=== PATIENT | male | born 1975 | race Caucasian/White ===

== ENCOUNTER 2025-02-26 09:52 | Emergency (ER) | payer MEDICAID, SELFPAY ==
[2025-02-26 10:12] VITALS: BP 147/88; PULSE 46; RESP 16; TEMP 36.7; O2SAT 99; BMI 27.1
[2025-02-26 10:40] LABS: MANUAL DIFF FLAG NO
[2025-02-26 10:43] LABS: Hematocrit 42.7 % (42.0-52.0); Hemoglobin 14.6 g/dl (14.0-18.0); Imm Gran Abs Auto 0.07 X10*3/uL (0.00-0.03); Imm Gran Pct Auto 0.4 % (0.0-0.4); Lymphocytes Absolute Auto 0.7 X10*3/uL (1.2-4.9); Mean Corpuscular HGB Conc 34.2 g/dl (31.0-36.0); Mean Corpuscular Hemoglobin 27.4 pg (27.0-33.0); Mean Corpuscular Volume 80.1 fL (80.0-98.0); NRBC Abs Auto 0.000 X10*3/uL (0.0-0.012); NRBC Pct Auto 0.0 /100WBC (0.0-0.2); Platelet Count 314 X10*3/uL (160-400); Red Blood Count 5.33 X10*6/uL (4.60-5.80); White Blood Count 16.4 X10*3/uL (4.8-10.8)
[2025-02-26 11:02] LABS: Alanine Aminotransferase 19 U/L (0-40); Albumin Level 4.6 g/dL (3.5-5.0); Alkaline Phosphatase 56 U/L (39-117); Anion Gap 13 (12-20); Aspartate Amino Transferase 22 U/L (5-37); Blood Urea Nitrogen 8 mg/dL (9-16); Calcium 9.5 mg/dL (8.4-10.2); Carbon Dioxide 26 mmol/L (22-29); Chloride 102 mmol/L (96-108); Creatinine Clr Calc Pharmacy 98.2; Estimated Glomerular Filt Rate > 60; Potassium 4.7 mmol/L (3.3-5.1); Sodium 136 mmol/L (135-145); Total Protein 7.8 g/dL (6.5-8.0)
--- NOTE | 2025-02-26 11:16 | ED_ITS ---
HPI - General Adult General Chief complaint: Dental/Oral Stated complaint: Right sided facial swelling, reaction to meds Time Seen by Provider: 02/26/25 11:16 History of Present Illness ED Provider: Taryn CEDENO narrative: The patient is a 49-year-old male who is generally in good health except for having a history of psoriasis for which he is on a biologic. He receives a monthly injections of a biologic for his psoriasis. No other medications. He is a runner. He is a nonsmoker, nondrinker. He developed pain in a tooth last week, 1 of his right jaw molars. He was seen at a dental office on Monday, 4 days ago, and was told that he would need a root canal. He was put on amoxicillin. After seeing the dentist he developed significant swelling in the region of the right jaw 3 days ago on Monday. This has been getting gradually worse. He has also had nausea and vomiting. He does not think he has had a fever. Today he went back to the dental office but was advised to come to the emergency room. Related Data Previous Rx's ?Medication ?Instructions ?Recorded clindamycin HCl 300 mg capsule 600 mg (2 x 300 mg) PO TID 8 days 02/26/25 (Cleocin HCl) #48 caps ibuprofen 400 mg tablet 400 mg PO Q6H PRN pain #14 t abs 02/26/25 oxycodone 5 mg tablet 5 mg PO Q6H PRN pain #12 tab s 02/26/25 Allergies Allergy/AdvReac Type Severity Reaction Status Date / Time acetaminophen (From Vicodin) Allergy Unknown Verified 02/26/25 10:17 hydrocodone (From Vicodin) Allergy Unknown Verified 02/26/25 10:17 Review of Systems 2 Review of Systems: Yes all other systems are reviewed and are negative PMFSH Social History Social History Smoked in Last 30 Days: No Use of substances other than those prescribed or required for medical reasons: No Advance Directives: No Advance Directives Information Provided: Yes Physical Exam ED Vital Signs: Vital Signs - 24 hr 02/26/25 10:12 02/26/25 16:33 Temperature 98.1 F 98.1 F Pulse Rate 46 L 49 L Respiratory Rate 16 15 Blood Pressure 147/88 H 144/82 H Pulse Oximetry 99 97 Oxygen Delivery Method Room Air Room Air BMI result Body Mass Index 27.1 Const Other: The patient is awake and alert. He has obvious swelling in the region of the right jaw. He otherwise is well looking. Orientation/consciousness: patient oriented x3 HENMT Other: The patient has a lot of soft tissue swelling over the right jaw. There was no erythema to the skin over the right jaw. The swelling is tender but not fluctuant. There was no trismus. Patient has some decay of the right molars. When I palpate the swelling overlying the right jaw by manually I do not appreciate any very focal swelling or tenderness. It seems generalized and boggy. Eyes Other: Pupils are round equal, conjunctivae are clear, extraocular movements intact Neck Other: I do not appreciate any significant lymphadenopathy Resp Effort & Inspection: normal respiratory effort Auscultation: clear to auscultation bilaterally Cardio Rate: regular rate Rhythm: regular rhythm Heart sounds: S1 normal heart sound present and S2 normal heart sound present Skin Other: There is soft tissue swelling to the skin over the right jaw. No erythema. The skin is otherwise unremarkable. Neuro General: patient oriented x3, tone normal, moves all extremities, no focal motor deficits and CN's II-XI intact bilaterally Extrem Other: There is no calf swelling or tenderness. No asymmetry. No peripheral edema. Medications Administered Discontinued Medications Generic Name Dose Route Start Last Admin Trade Name Freq PRN Reason Stop Dose Admin Ceftriaxone Sodium 2 gm 02/26/25 11:27 02/26/25 12:37 Ceftriaxone Sodium 2 Gm Vial IVPUSH 02/26/25 11:28 2 gm ONCE ONE Administration Dexamethasone Sodium Phosphate 10 mg 02/26/25 15:50 02/26/25 16:31 Dexamethasone Sod Phosphate 10 Mg/Ml Vial IVPUSH 02/26/25 15:51 10 mg ONCE ONE Administration Diphenhydramine HCl 25 mg 02/26/25 13:58 02/26/25 14:22 Diphenhydramine Hcl 50 Mg/Ml Vial IVPUSH 02/26/25 13:59 25 mg ONCE ONE Administration Sodium Chloride 1,000 mls @ 999 mls/hr 02/26/25 11:30 02/26/25 13:25 Ns IV 02/26/25 12:30 Infused .Q1H1M AUDI Infusion Metronidazole 500 mg in 100 mls @ 100 mls/hr 02/26/25 11:27 02/26/25 13:37 Flagyl IV 02/26/25 12:26 Infused ONCE ONE Infusion Sodium Chloride 1,000 mls @ 999 mls/hr 02/26/25 14:15 02/26/25 16:30 Ns IV 02/26/25 15:15 Infused .Q1H1M AUDI Infusion Acetaminophen 1,000 mg in 100 mls @ 400 mls/hr 02/26/25 14:49 02/26/25 15:55 Ofirmev IV 02/26/25 15:03 Infused ONCE ONE Infusion Ketorolac Tromethamine 15 mg 02/26/25 11:27 02/26/25 12:27 Ketorolac Tromethamine 15 Mg/Ml Vial IVPUSH 02/26/25 11:28 15 mg ONCE ONE Administration Metoclopramide HCl 10 mg 02/26/25 13:58 02/26/25 14:22 Metoclopramide Hcl 10 Mg/2 Ml Vial IVPUSH 02/26/25 13:59 10 mg ONCE ONE Administration Ondansetron HCl 4 mg 02/26/25 11:27 02/26/25 12:27 Ondansetron Hcl 4 Mg/2 Ml Vial IVPUSH 02/26/25 11:28 4 mg ONCE ONE Administration Medical Decision Making Medical Decision Making [facility] Narrative: The patient is a 49-year-old male who presents with a dental infection over the right jaw. He has soft tissue swelling but I do not think that there is a focal abscess. The area of swelling his boggy but not well defined or fluctuant. The patient has also been complaining of nausea. The patient was given 2 g of IV ceftriaxone and 500 mg of IV furosemide. He was given IV fluids. He was given antiemetics. Was given ketorolac and acetaminophen IV. He ultimately seemed to feel somewhat better. He was able to tolerate oral intake. I think at this point further attempts at outpatient management would be appropriate. He will be prescribed clindamycin which will replace the amoxicillin he has been taking. He was also given prescriptions for oxycodone and ondansetron. He has a dental appointment tomorrow. Lab Data 02/26/25 10:36 02/26/25 10:36 Labs: Lab Results 02/26/25 Range/Units 10:36 WBC 16.4 H (4.8-10.8) X10*3/uL RBC 5.33 (4.60-5.80) X10*6/uL Hgb 14.6 (14.0-18.0) g/dl Hct 42.7 (42.0-52.0) % MCV 80.1 (80.0-98.0) fL MCH 27.4 (27.0-33.0) pg MCHC 34.2 (31.0-36.0) g/dl RDW 13.2 (11.0-16.0) % Plt Count 314 (160-400) X10*3/uL MPV 10.0 (9.4-12.4) fL Immature Gran % (Auto) 0.4 (0.0-0.4) % Neut % (Auto) 87.5 H (45-73) % Lymph % (Auto) 4.1 L (20-40) % [place] % (Auto) 7.9 (2-11) % Eos % (Auto) 0.0 (0-4) % Baso % (Auto) 0.1 (0-2) % Lymph # (Auto) 0.7 L (1.2-4.9) X10*3/uL [place] # (Auto) 1.3 H (0.1-1.2) X10*3/uL Eos # (Auto) 0.0 (0.0-0.4) X10*3/uL Baso # (Auto) 0.0 (0.0-0.2) X10*3/uL Abs Immat Gran (auto) 0.07 H (0.00-0.03) X10*3/uL Absolute Neuts (auto) 14.4 H (2.0-8.3) x10*3/uL Absolute Nucleated RBC 0.000 (0.0-0.012) X10*3/uL Nucleated RBC % (auto) 0.0 (0.0-0.2) /100WBC Sodium 136 (135-145) mmol/L Potassium 4.7 (3.3-5.1) mmol/L Chloride 102 (96-108) mmol/L Carbon Dioxide 26 (22-29) mmol/L Anion Gap 13 (12-20) BUN 8 L (9-16) mg/dL Creatinine 1.02 (0.5-1.4) mg/dL Estim Creat Clear Calc 98.2 Estimated GFR > 60 Random Glucose 137 H (60-115) mg/dL Lactic Acid 1.3 (0.5-2.0) mmol/L Calcium 9.5 (8.4-10.2) mg/dL Total Bilirubin 0.6 (0.0-1.0) mg/dL AST 22 (5-37) U/L ALT 19 (0-40) U/L Alkaline Phosphatase 56 (39-117) U/L Total Protein 7.8 (6.5-8.0) g/dL Albumin 4.6 (3.5-5.0) g/dL Discharge Plan Discharge Clinical Impression: Dental infection Patient Disposition: Home, Self-Care Instructions: Dental Abscess (ED) Additional Instructions: At the moment I do not feel that the swelling on your face is organized into a drainable abscess. At this point I think the primary treatment as antibiotics. You received IV antibiotics here in the emergency room. I have sent a prescription for additional antibiotics to your pharmacy. Please take your 1st dose this evening. This antibiotic is clindamycin. Please take this 3 times a day, approximately every 8 hours. I have also sent a prescription for ondansetron which you may use as needed for nausea. I have also sent prescriptions for ibuprofen which you may use as needed for pain. You may also use [id number] acetaminophen (Tylenol). In addition there is a prescription for oxycodone which you may use when necessary for severe pain. Please keep your appointment with the dentist tomorrow and my hope is that you will be sufficiently improved to have some kind of additional procedure next week. If you are significantly worse you should be seen again in an emergency room. Prescriptions: New clindamycin HCl [Cleocin HCl] 300 mg capsule 600 mg PO TID 8 Days Qty: 48 0RF ibuprofen 400 mg tablet 400 mg PO Q6H PRN (Reason: pain) Qty: 14 0RF oxycodone 5 mg tablet 5 mg PO Q6H PRN (Reason: pain) Qty: 12 0RF Rx Instructions: Partial Fill upon patient request. Interventions: ED Discharge Assessment Last Done: 02/26/25 16:33 Discharge Date/Time: 02/26/25 16:33 Print Language: Moroccan
[2025-02-26] MEDS: metroNIDAZOLE/NS 500 MG/100 ML PIGGYBACK 100 MG IV (12:37)
[2025-02-26 16:33] VITALS: BP 144/82; PULSE 49; RESP 15; TEMP 36.7; O2SAT 97
== END 2025-02-26 16:33 | disposition home or self-care (01) ==
PROVIDERS: Emergency Provider Emergency Medicine; PCP Family Medicine
DX: K04.7 Periapical abscess without sinus (principal); K08.89 Other specified disorders of teeth and supporting structures
CPT/HCPCS: 36415; 80053; 83605; 85025; 87040; 96361; 96374; 96375; 99284; J0131; J0696; J1100; J1200; J1836; J1885; J2405; J2765

== ENCOUNTER 2025-02-28 12:36 | Emergency (ER) | payer MEDICAID, SELFPAY ==
[2025-02-28] VITALS (9 sets, daily range): BP systolic 106–130; BP diastolic 61–73; PULSE 62–89; RESP 12–16; TEMP 36.4–37.6; O2SAT 96–97; BMI 28.8
--- NOTE | ~2025-02-28 | CT_ITS ---
EXAMINATION: CT SOFT TISSUE NECK WITH CONTRAST CLINICAL INFORMATION: Worsening of dental infection with swelling right jaw. COMPARISON: None available. TECHNIQUE: Following the intravenous administration of 60 mL of Omnipaque 350 intravenous contrast, helical imaging was performed in the axial plane with generation of coronal and sagittal reformatted images. This CT examination was performed using dose optimization techniques as appropriate, variously including the following: *Automated exposure control *Adjustment of mA and/or kV according to patient size (this includes techniques or standardized protocols for targeted exams where dose is matched to indication/reason for exam; i.e. extremities or head) *Use of iterative reconstruction technique FINDINGS: There is extensive soft tissue swelling in the right submental and premental region, with involvement of the right mandibular buccal space, where there is a bucal space subperiosteal abscess collection with peripheral enhancement measuring 4.7 x 1.1 x 3.1 cm (AP, TRV, CC). This extends posteriorly to invade the anterior medial aspect of the right masseter muscle, with thickening of the right buccinator muscle and platysma muscle. There is extension of phlegmonous infiltrative changes into the right submandibular space and to a lesser degree left submandibular space, and into the anterior cervical space inferiorly. Source of the infection is odontogenic although a clear site of infection is not identified. No periapical lucencies are large carious lesions are noted. There is no evidence of Harish's angina currently. There is mild involvement of the right floor of the mouth and right tongue base, and there is swelling of the right anterior and posterior belly of digastric. There is reactive lymphadenopathy in the level 1B and level 2 regions, right greater than left. No pathologically enlarged lymph nodes are present. The parotid glands appear normal. There is mild swelling of the right submandibular gland, likely secondarily. There is no airway effacement. Internal jugular veins are patent. Mucosal Space: -Normal without discrete lesion evident. Visceral Space: -Thyroid gland: Normal. -Larynx is normal. -Subglottic trachea is normal. -Cervical esophagus is normal. Retropharangeal Space: - Normal. Parapharyngeal Fat Planes: -Normal. Core Mounter Spaces: -As above. Left side is normal. Anterior Cervical Space: -As above. Imaged Intracranial Contents: -No mass effect, edema, or abnormal enhancement. Cortical and dural venous sinuses are patent. The skull base is normal. Globes and Orbits: -Normal. Paranasal Sinuses/Mastoids/Tympanic Spaces: -Normally aerated bilaterally. Lung Apices and Superior Mediastinal Structures: -Imaged lung apices are clear and superior mediastinal structures are normal. Bony Structures: -No suspicious bone lesions. No fractures. -Normal TM joints. CT/CT soft tissue neck w IV con IMPRESSION: 1. Odontogenic infection involving the right premental and submental regions, with a large subperiosteal abscess abutting the right mandible measuring 4.7 x 1.1 x 3.1 cm. Source is most likely the right mandible although no gross periapical lucency or large carious lesion is evident. There is secondary involvement of the right muscles of mastication, most notably the masseter muscle. 2. There is secondary extension of inflammation into the right greater than left submandibular spaces, and bilateral anterior cervical space. 3. There is mild involvement of the right floor of mouth as detailed, although there is no current gross evidence of Harish's angina. 4. There is mild reactive lymphadenopathy in the right greater than left level 1B and level 2 cervical chains. Electronically signed by: Baltazar Kruse MD 02/28/2025 03:16 PM EDT
--- NOTE | ~2025-02-28 | CT_ITS ---
EXAMINATION: CT HEAD WITHOUT CONTRAST CLINICAL INFORMATION: fall, head injury COMPARISON: None available. TECHNIQUE: Contiguous axial imaging was performed from the skull base to vertex without intravenous administration of contrast. This CT examination was performed using dose optimization techniques as appropriate, variously including the following: *Automated exposure control *Adjustment of mA and/or kV according to patient size (this includes techniques or standardized protocols for targeted exams where dose is matched to indication/reason for exam; i.e. extremities or head) *Use of iterative reconstruction technique DLP: 770.47 mGy-cm FINDINGS: Limited by patient's motion. No acute cortical disruption in the bony calvarium. No acute intracranial hemorrhage, mass effect, midline shift, hydrocephalus or herniation. Peter-white matter differentiation is normal. Posterior cranial fossa contents demonstrated no acute hemorrhage or mass effect. Normal position of the cerebellar tonsils. Sellar/suprasellar region demonstrated no gross masses or hemorrhage. No air-fluid levels in the included paranasal sinuses. Tympanic cavities and mastoid cells are aerated. No gross hematoma in the intraconal or extraconal compartments of the orbits. CT/CT head/brain wo IV con IMPRESSION: No acute fracture, bony calvarium or acute intracranial hemorrhage. Electronically signed by: Ronny Anderson MD 02/28/2025 02:51 PM EDT
[2025-02-28 12:44] LABS: Glucose, Whole Blood 134 mg/dL (60-115)
--- NOTE | 2025-02-28 12:48 | ECG_ITS ---
Test Reason : SYNCOPE Blood Pressure : */* mmHG Vent. Rate : 68 BPM Atrial Rate : 68 BPM P-R Int : 158 ms QRS Dur : 86 ms QT Int : 398 ms P-R-T Axes : 56 8 5 degrees QTcB Int : 423 ms Normal sinus rhythm Normal ECG No previous ECGs available Referred By: Rai Centeno Electronically Signed By: BONNIE CAMARENA MD
--- NOTE | 2025-02-28 13:30 | ED_ITS ---
HPI - General Adult General Chief complaint: General Medical Stated complaint: fainted Time Seen by Provider: 02/28/25 12:36 History of Present Illness ED Provider: Taryn CEDENO narrative: The patient is a 49-year-old male. He is generally healthy except for psoriasis for which he takes a monthly biologic injection. He is normally active and a runner. He has had dental pain on his right jaw for several days and was seen at a dental office earlier this week and started on amoxicillin. He came to the emergency room here 2 days ago on Monday because of worsening swelling on the right side of his jaw. He was given IV antibiotics, IV fluids, and was discharged to take clindamycin 600 mg Q 8 hours. He was also prescribed ibuprofen, acetaminophen, and oxycodone. He followed up with his dentist yesterday and was advised to continue antibiotics. Over the course of the day and last night he felt that the swelling was getting worse instead of better. This morning he drove himself to the hospital because he felt the swelling was worse. He did not feel severely unwell while he was driving but apparently as soon as he entered the emergency room waiting room he felt abruptly lightheaded and had a syncopal episode with transient loss of consciousness. He struck his chin in his sustained a laceration under the left side of his chin. The patient seemed to recover immediately although he was very diaphoretic and was brought directly into a room. He has pain in the right side of his face where his swelling is. He also has some pain under his left jaw where the laceration is. He has no posterior C-spine neck pain. The patient later told me that he had had a maroon looking stool this morning. Related Data Previous Rx's ?Medication ?Instructions ?Recorded clindamycin HCl 300 mg capsule 600 mg (2 x 300 mg) PO TID 8 days 02/26/25 (Cleocin HCl) #48 caps ibuprofen 400 mg tablet 400 mg PO Q6H PRN pain #14 t abs 02/26/25 oxycodone 5 mg tablet 5 mg PO Q6H PRN pain #12 tab s 02/26/25 Allergies Allergy/AdvReac Type Severity Reaction Status Date / Time hydrocodone (From Vicodin) Allergy Unknown Verified 02/28/25 12:49 Review of Systems 2 Review of Systems: Yes all other systems are reviewed and are negative [facility] Social History Social History Smoked in Last 30 Days: No Use of substances other than those prescribed or required for medical reasons: No Advance Directives: No Advance Directives Information Provided: Yes Physical Exam ED Vital Signs: Vital Signs - 24 hr 02/28/25 12:46 02/28/25 16:21 02/28/25 16:38 Temperature 97.7 F 98.4 F 98.4 F Pulse Rate 62 84 89 Respiratory Rate 16 16 16 Blood Pressure 106/70 117/67 121/73 Pulse Oximetry 96 97 Oxygen Delivery Method Room Air Room Air 02/28/25 16:56 02/28/25 16:56 02/28/25 18:19 Temperature 99.6 F 99.6 F 97.5 F Pulse Rate 79 79 73 Respiratory Rate 16 16 16 Blood Pressure 128/65 128/65 117/61 Pulse Oximetry Oxygen Delivery Method BMI result Body Mass Index 28.8 Const Other: The patient was initially quite diaphoretic. He was awake and alert. He who was pleasant and cooperative. He had a lot of swelling on the right side of his jaw. Orientation/consciousness: patient oriented x3 HENMT Other: The patient has a lot of swelling on the right side of the jaw. He has some trismus. There was some obvious swelling in the gutter of the vestibule of the right side of the mouth which was tender and fluctuant. He had two slightly chipped teeth. There is a 4 cm horizontally oriented laceration to the skin below the left jaw. Eyes Other: Pupils are round equal, conjunctivae are clear, extraocular movements intact Neck Other: The patient has swelling in the right side of the face that extends somewhat into the right upper neck. I do not appreciate any definite adenopathy however. Resp Effort & Inspection: normal respiratory effort Auscultation: clear to auscultation bilaterally Cardio Rate: regular rate Heart sounds: S1 normal heart sound present and S2 normal heart sound present GI Other: Abdomen is soft and nontender Skin Other: The skin was initially pale and diaphoretic Neuro General: patient oriented x3, tone normal, moves all extremities, no focal motor deficits and CN's II-XI intact bilaterally Extrem Other: There is no calf swelling or tenderness. No asymmetry. No peripheral edema. Medications Administered Generic Name Dose Route Start Last Admin Trade Name Freq PRN Reason Stop Dose Admin Pantoprazole Sodium 80 mg/ 100 mls @ 10 mls/hr 02/28/25 16:00 02/28/25 16:42 Sodium Chloride IV 8 mg/hr .Q10H AUDI 10 mls/hr 8 MG/HR Administration Discontinued Medications Generic Name Dose Route Start Last Admin Trade Name Kel PRN Reason Stop Dose Admin Sodium Chloride 1,000 mls @ 999 mls/hr 02/28/25 12:45 02/28/25 15:39 Ns IV 02/28/25 13:45 Infused .Q1H1M AUDI Infusion Clindamycin Phosphate 900 mg in 50 mls @ 50 mls/hr 02/28/25 13:02 02/28/25 16:14 Cleocin IV 02/28/25 14:01 Infused ONCE ONE Infusion Iohexol 100 ml 02/28/25 14:39 02/28/25 14:40 Iohexol 350 Mg/Ml 100 Ml Infus..Btl IV 02/28/25 14:40 60 ml ONCE ONE Administration Lidocaine/Epinephrine 10 ml 02/28/25 14:05 02/28/25 15:36 Lidocaine Hcl 1%/Epi 1:100,000 10 Ml Vial INFILTRATI 02/28/25 14:06 10 ml ONCE ONE Administration Lidocaine/Epinephrine 10 ml 02/28/25 17:18 02/28/25 17:50 Lidocaine Hcl 1%/Epi 1:100,000 10 Ml Vial INFILTRATI 02/28/25 17:19 10 ml ONCE ONE Administration Pantoprazole Sodium 80 mg 02/28/25 15:09 02/28/25 15:36 Pantoprazole Sodium 40 Mg/10 Ml Vial IVPUSH 02/28/25 15:10 80 mg ONCE ONE Administration Procedures Abscess I/D Site: oral (Gutter of the right oral vestibule) Side (if applicable): right Local Anesthetic: lidocaine 1% and with epi Amount of anesthesia used (mL): 2 Technique: incised with blade (I first introduced an 18 gauge needle which released and explosive Flood of thin pus. I then made an incision with a 11. Blade. A great deal of pus was released.) Laceration Laceration 1: Site: face Side (If applicable): left Size (cm): 4 Description: linear Depth: simple, single layer Local Anesthetic: lidocaine 1% and with epi Amount of anesthesia used (mL): 8 Pre-repair: wound explored, irrigated extensively and deep structures intact Skin layer closed with: nylon Size (cm): 6-0 Number of sutures: 4 Medical Decision Making Medical Decision Making [facility] Narrative: The patient is a 49-year-old male who was ordinarily fairly healthy aside from psoriasis for which he takes monthly injections of a biologic agent which might cause some degree of immune suppression. He has had a dental infection on the right jaw for about a week. He was initially treated with the amoxicillin. He was seen in the emergency room 2 days ago for worsening swelling on the outside of the right jaw and he was given IV ceftriaxone and metronidazole and then discharged on 600 mg clindamycin t.i.d.. He has also been taking a lot of ibuprofen during the last several days. He saw his dentist in follow up yesterday and was advised to continue antibiotics. Yesterday evening and last night the swelling on the right side of his jaw have gotten significantly worse. Additionally he had a maroon stool last night. He also has a maroon stool this morning. He felt that things were not going well and he drove himself to the emergency room this morning. In our waiting room he had a syncopal episode in which he chipped two teeth slightly. He also sustained a 4 cm laceration under the left chin. The patient recovered from his syncopal episode with unremarkable vital signs. He was sent for a CT of his head and CT with IV contrast of his neck to evaluate his dental infection. He would not initially mentioned the maroon stools he has a home. He has a movements stool here at which point it was clear he was having a GI bleed in addition to his dental infection. He has been given 900 mg of IV clindamycin for his dental infection. Once it was apparent he was also having a GI bleed he was also given IV Protonix and blood transfusion was ordered. The patient's hemoglobin today is 9.9. It was 14.6 2 days ago. I spoke to our paint roller covers supervisor with a question of management at this hospital. The patient has trismus from his infection. His CT scan showed a periosteal abscess. I was able to drain the periosteal abscess at the bedside with a release of a large amount of pus. Despite the release of pus he continued to have significant trismus. Apparently our paint roller covers supervisor and anesthesia did not feel we should keep this patient at this hospital because of his trismus. They felt the patient should be transferred to a hospital with maxillofacial capacity. I attempted to transfer the patient to [facility], [facility], and [facility] All of these facilities declined transfer. I then contacted [facility] and the patient will be accepted to their emergency room. The accepting doctor will be Dr. Ríos. This will be emergency room to emergency room. In addition to draining the abscess in the gutter of the right oral vestibule I also closed the laceration under the patient is chin with 4 simple interrupted stitches using 6 0 Prolene. Lab Data 02/28/25 14:37 02/28/25 15:32 Labs: Lab Results 02/28/25 02/28/25 02/28/25 Range/Units 12:41 13:26 14:37 WBC 11.0 H (4.8-10.8) X10*3/uL RBC 3.64 L D (4.60-5.80) X10*6/uL Hgb 9.9 L D (14.0-18.0) g/dl Hct 30.0 L D (42.0-52.0) % MCV 82.4 (80.0-98.0) fL MCH 27.2 (27.0-33.0) pg MCHC 33.0 (31.0-36.0) g/dl RDW 13.2 (11.0-16.0) % Plt Count 258 (160-400) X10*3/uL MPV 9.8 (9.4-12.4) fL Immature Gran % (Auto) Cancelled Neut % (Auto) Cancelled Lymph % (Auto) Cancelled [place] % (Auto) Cancelled Eos % (Auto) Cancelled Baso % (Auto) Cancelled Lymph # (Auto) Cancelled [place] # (Auto) Cancelled Eos # (Auto) Cancelled Baso # (Auto) Cancelled Abs Immat Gran (auto) Cancelled Absolute Neuts (auto) Cancelled Absolute Nucleated RBC 0.000 (0.0-0.012) X10*3/uL Nucleated RBC % (auto) 0.0 (0.0-0.2) /100WBC Neutrophils % (Manual) 88 H (45-73) % Band Neutrophils % 6 H (3-5) % Lymphocytes % (Manual) 4 L (20-40) % Monocytes % (Manual) 2 (2-11) % Metamyelocytes % 0 % Abs Neuts (Manual) 10.3 H (2.0-8.3) X10*3/uL Lymphocytes # (Manual) 0.4 L (1.2-4.9) X10*3/uL Monocytes # (Manual) 0.2 (0.1-1.2) X10*3/uL Dohle Bodies PRESENT Platelet Estimate NORMAL (NORMAL) Plt Morphology Comment NORMAL RBC Morphology NOTED [place] Cells 2+ (3-5) /OIF Smear Tech's Comments MANUAL DIFF Sodium TNP Potassium TNP Chloride TNP Carbon Dioxide TNP Anion Gap TNP BUN TNP Creatinine TNP Estim Creat Clear Calc TNP Estimated GFR TNP POC Glucose 134 H (60-115) mg/dL Random Glucose TNP Lactic Acid TNP Calcium TNP Total Bilirubin TNP Direct Bilirubin TNP AST TNP ALT TNP Alkaline Phosphatase TNP C-Reactive Protein TNP Total Protein TNP Albumin TNP Blood Type Antibody Screen Crossmatch 02/28/25 Range/Units 15:32 WBC (4.8-10.8) X10*3/uL RBC (4.60-5.80) X10*6/uL Hgb (14.0-18.0) g/dl Hct (42.0-52.0) % MCV (80.0-98.0) fL MCH (27.0-33.0) pg MCHC (31.0-36.0) g/dl RDW (11.0-16.0) % Plt Count (160-400) X10*3/uL MPV (9.4-12.4) fL Immature Gran % (Auto) Neut % (Auto) Lymph % (Auto) [place] % (Auto) Eos % (Auto) Baso % (Auto) Lymph # (Auto) [place] # (Auto) Eos # (Auto) Baso # (Auto) Abs Immat Gran (auto) Absolute Neuts (auto) Absolute Nucleated RBC (0.0-0.012) X10*3/uL Nucleated RBC % (auto) (0.0-0.2) /100WBC Neutrophils % (Manual) (45-73) % Band Neutrophils % (3-5) % Lymphocytes % (Manual) (20-40) % Monocytes % (Manual) (2-11) % Metamyelocytes % % Abs Neuts (Manual) (2.0-8.3) X10*3/uL Lymphocytes # (Manual) (1.2-4.9) X10*3/uL Monocytes # (Manual) (0.1-1.2) X10*3/uL Dohle Bodies Platelet Estimate (NORMAL) Plt Morphology Comment RBC Morphology [place] Cells /OIF Smear Tech's Comments Sodium 134 L Potassium 4.3 Chloride 101 Carbon Dioxide 26 Anion Gap 11 L BUN 13 Creatinine 0.81 Estim Creat Clear Calc 135.6 Estimated GFR > 60 POC Glucose (60-115) mg/dL Random Glucose 120 H Lactic Acid 2.0 Calcium 7.4 L D Total Bilirubin 0.5 Direct Bilirubin AST 15 ALT < 6 Alkaline Phosphatase 39 C-Reactive Protein Total Protein 4.8 L Albumin 2.8 L Blood Type A Negative Antibody Screen NEGATIVE Crossmatch See Detail Critical Care Time Critical Care Time Critical Care Time: Yes Total Critical Care Time: 35 Attestation: The patient was critically ill with a high probability of imminent or life- threatening deterioration. ?I spent greater than 30 minutes of discontinuous time evaluating the patient, delivering critical care at the bedside, discussing evaluating data with consultants. ?Critical care time does not include time spent performing separately billable procedures or teaching. ?Time spent performing critical care with 35 minutes. Discharge Plan Discharge Clinical Impression: GI bleed, Dental infection, Abscess of periosteum without osteomyelitis, Trismus, Psoriasis Patient Disposition: [facility] Transfer Details: [facility] Emergency room Prescriptions: No Action clindamycin HCl [Cleocin HCl] 300 mg capsule 600 mg PO TID 8 Days Qty: 48 0RF ibuprofen 400 mg tablet 400 mg PO Q6H PRN (Reason: pain) Qty: 14 0RF oxycodone 5 mg tablet 5 mg PO Q6H PRN (Reason: pain) Qty: 12 0RF Rx Instructions: Partial Fill upon patient request. Print Language: Guyanese
--- NOTE | 2025-02-28 13:49 | MHC.EDTECH ---
this tech was asked by RN to redraw lab work that was already sent. Labs redrawn using a straight needle on the opposite arm of IV placement. Lab called and stated that the redrawn labs must have been drawn off a line or drawn from the same arm as the IV because values were off. Charge nurse and RN notified.
[2025-02-28] MEDS: iohexoL 350 MG/ML 100 ML INFUS..BTL IV (14:40)
[2025-02-28 14:51] LABS: Hematocrit 30.0 % (42.0-52.0); Hemoglobin 9.9 g/dl (14.0-18.0); Mean Corpuscular HGB Conc 33.0 g/dl (31.0-36.0); Mean Corpuscular Hemoglobin 27.2 pg (27.0-33.0); Mean Corpuscular Volume 82.4 fL (80.0-98.0); NRBC Abs Auto 0.000 X10*3/uL (0.0-0.012); NRBC Pct Auto 0.0 /100WBC (0.0-0.2); Platelet Count 258 X10*3/uL (160-400); Red Blood Count 3.64 X10*6/uL (4.60-5.80); White Blood Count 11.0 X10*3/uL (4.8-10.8)
[2025-02-28 15:30] LABS: Band Neutrophils Percent 6 % (3-5); Lymphocytes Absolute Manual 0.4 X10*3/uL (1.2-4.9); Lymphocytes Percent Manual 4 % (20-40); Metamyelocytes Percent 0 %; Monocytes Absolute Manual 0.2 X10*3/uL (0.1-1.2); Monocytes Percent Manual 2 % (2-11); Neutrophils Absolute Manual 10.3 X10*3/uL (2.0-8.3); Neutrophils Percent Manual 88 % (45-73)
[2025-02-28 15:31] LABS: Burr Cells 2+ (3-5) /OIF; RBC Morphology NOTED
[2025-02-28 15:32] LABS: Dohle Bodies PRESENT
--- NOTE | 2025-02-28 15:33 | PC.NURSE ---
Assumed care of this patient @ 1500, patient still needing labs drawn, CHANDU Wiggins currently at bedside drawing lab work at this time. Dr. Atwood currently in room to begin chin lac repair. Patient has 2 units PRBCs ordered, not ready at this time.
[2025-02-28] MEDS: Lidocaine HCl 1%/Epi 1:100,000 10 ML VIAL INFILTRATI ×2 (15:36→17:50)
[2025-02-28 16:00] LABS: Alanine Aminotransferase < 6 U/L (0-40); Albumin Level 2.8 g/dL (3.5-5.0); Alkaline Phosphatase 39 U/L (39-117); Anion Gap 11 (12-20); Aspartate Amino Transferase 15 U/L (5-37); Blood Urea Nitrogen 13 mg/dL (9-16); Calcium 7.4 mg/dL (8.4-10.2); Carbon Dioxide 26 mmol/L (22-29); Chloride 101 mmol/L (96-108); Creatinine Clr Calc Pharmacy 135.6; Estimated Glomerular Filt Rate > 60; Potassium 4.3 mmol/L (3.3-5.1); Sodium 134 mmol/L (135-145); Total Protein 4.8 g/dL (6.5-8.0)
--- NOTE | 2025-02-28 16:09 | PC.NURSE ---
Called lab, spoke to Jessica, says blood will be ready in 5 minutes.
[2025-02-28] MEDS: Pantoprazole Sodium 80 MG in 0.9 % Sodium Chloride 80 ML 10 MG IV (16:42)
--- NOTE | 2025-02-28 19:16 | PC.NURSE ---
Patient transferred to [facility], RN to RN report given to Elisabeth. All questions answered. Patient left dept with Protonix GTT and 2nd unit of blood running. EMS Paul aware / transferred to EMS stretcher w/o issue.
== END 2025-02-28 19:20 | disposition short-term general hospital (02) ==
PROVIDERS: Emergency Provider Emergency Medicine
DX: R55 Syncope and collapse (principal); M27.2 Inflammatory conditions of jaws; S01.81XA Laceration without foreign body of other part of head, initial encounter; S02.5XXA Fracture of tooth (traumatic), initial encounter for closed fracture; W18.39XA Other fall on same level, initial encounter; R25.2 Cramp and spasm; K92.2 Gastrointestinal hemorrhage, unspecified; L40.9 Psoriasis, unspecified; R22.1 Localized swelling, mass and lump, neck; R51.9 Headache, unspecified; Y93.89 Activity, other specified; Y92.238 Other place in hospital as the place of occurrence of the external cause; Y99.9 Unspecified external cause status
CPT/HCPCS: 12013; 36415; 36430; 42700; 70450; 70491; 80048; 80053; 80076; 82947; 83605; 85007; 85025; 85027; 86140; 86850; 86900; 86901; 86923; 87040; 87205; 93005; 96361; 96365; 96366; 96367; 99285; 99291; J0736; J2004; J2470; P9016; Q9967

== ENCOUNTER → 2025-02-28 12:46 | Outpatient (BNV) | payer MEDICAID, SELFPAY | PROVIDERS: Emergency Provider Emergency Medicine; Visit Provider Radiology Diagnostic Radiology | DX: K12.2 Cellulitis and abscess of mouth (principal); S09.90XA Unspecified injury of head, initial encounter | CPT/HCPCS: 70450; 70491 ==

== ENCOUNTER → 2025-02-28 12:48 | Outpatient (BNV) | payer MEDICAID, SELFPAY | PROVIDERS: Emergency Provider Emergency Medicine; Visit Provider Internal Medicine Cardiovascular Disease | DX: R55 Syncope and collapse (principal) | CPT/HCPCS: 93010 ==